=== PATIENT | female | born 1975 | race Two or more races ===

== ENCOUNTER 2024-11-17 22:37 | Emergency (ER) | payer OTHER ==
[~2024-11-17] VITALS: Ht 157.5 cm; Wt 83.9 kg
[2024-11-18] MEDS ORDERED: KETOROLAC TROMETHAMINE 30 MG VIAL IV STA (03:33)
[2024-11-18] MEDS ORDERED: CIPROFLOXACIN IN 5 % DEXTROSE 400 MG/200 ML PIGGYBAG IV STA (03:34)
[2024-11-18] MEDS ORDERED: KETOROLAC TROMETHAMINE 30 MG VIAL ONE (03:37)
[2024-11-18] MEDS ORDERED: CIPROFLOXACIN IN 5 % DEXTROSE 400 MG/200 ML PIGGYBAG IV ONE (03:38)
[2024-11-18 04:30] LABS: PH,URINE 5.5 (5.0-8.0); URINE APPEARANCE Cloudy; URINE BILIRRUBIN Negative (NEGATIVE); URINE BLOOD Moderate; URINE COLOR Yellow; URINE GLUCOSE Negative (NEGATIVE); URINE KETONE Negative (NEGATIVE); URINE LEUKOCYTE Large; URINE NITRATE Negative; URINE PROTEIN 30 (NEGATIVE); URINE UROBILINOGEN 0.2 E.U./dl
[2024-11-18 04:33] LABS: URINE BACTERIA 422.2 uL (0.0-1933); URINE EPITHELIAL CELLS 22.3 uL (0.0-38.8); URINE RBC 2.3 uL (0.0-20.8)
[2024-11-18 04:34] LABS: URINE CAST 0.44 uL (0.0-1.40)
== END 2024-11-18 05:06 | disposition home or self-care (01) ==
LOC: ER 22:40
DX: N39.0 Urinary tract infection, site not specified (principal)